=== PATIENT | female | born 1955 | race Caucasian/White ===

== ENCOUNTER → 2018-04-17 13:20 | Outpatient (CLI) | payer OTHER, SELFPAY ==
--- NOTE | 2018-04-17 13:22 | RAD_ITS ---
STUDY: X-RAY - LUMBOSACRAL SPINE REASON FOR EXAM: Female, 62 years old. Back pain. TECHNIQUE: 6 view(s) of the lumbosacral spine including lateral flexion and extension views were obtained. COMPARISON: None FINDINGS: There is generalized osteopenia. Normal lumbar lordosis. There is rotatory dextroscoliosis. There is normal movement on flexion and extension with no abnormal motion. Normal vertebral bodies and endplates. There is multilevel intervertebral disc space narrowing most marked at L2-3 and L3-4 with osteophyte formation. Normal bilateral sacral ala, sacroiliac joints, and visualized sacrum. There is marked vascular calcification. RAD/L/S Spine Comp/w Bending Views IMPRESSION: Osteopenia with lumbar spondylosis as described. Normal movement on flexion and extension with no abnormal motion. Electronically Signed: Adriano De La Garza MD at 12:21 EDT , Service support ,
--- NOTE | 2018-04-17 13:22 | RAD_ITS ---
STUDY: X-RAY - PELVIS AND LEFT HIP REASON FOR EXAM: Pain. TECHNIQUE: Radiological exam, hip, unilateral, with pelvis when performed; 2 or 3 views. COMPARISON: Fluoroscopic views 10/24/2013. FINDINGS: There is a small linear postoperative artifact in the pelvis. Normal bilateral iliac wings, sacroiliac joints and visualized sacrum. Normal bilateral superior and inferior pubic rami. There are degenerative changes of the pubic symphysis. Normal bilateral ischial tuberosities. There is a healed intertrochanteric left hip fracture with intact orthopedic hardware and a thin radiolucency surrounding the hip nail. There is chronic avulsion fracture of the lesser tuberosity. RAD/HIP, UNI W/ Pelvis 2-3 Views IMPRESSION: Healed left intertrochanteric fracture and chronic avulsion of the lesser tuberosity. Electronically Signed: Go Mora MD at 9:18 EDT Tel , Service support ,
== END ==
PROVIDERS: Family Provider Student in an Organized Health Care Education/Training Program; PCP Student in an Organized Health Care Education/Training Program; Visit Provider Orthopaedic Surgery
DX: M54.5 Low back pain (principal); M25.552 Pain in left hip
CPT/HCPCS: 72114; 73502

== ENCOUNTER → 2025-06-13 | Outpatient (CLI) | payer MEDICARE, SELFPAY ==
[2025-06-13 16:38] LABS: Ferritin 122 ng/mL (22-378); Vitamin D,25 Hydroxy 44.8 ng/mL (30-100)
== END | disposition home or self-care (01) ==
LOC: MTLAB 13:45
PROVIDERS: PCP Student in an Organized Health Care Education/Training Program; Referring Provider Physician Assistant Medical; Visit Provider Physician Assistant Medical
DX: L65.0 Telogen effluvium (principal)
CPT/HCPCS: 36415; 82306; 82728